=== PATIENT | female | born 1995 | race Caucasian/White ===

== ENCOUNTER 2020-01-11 08:59 | Emergency (ER) | payer BC, SELFPAY ==
--- NOTE | 2020-01-11 09:17 | EDPHYS ---
Physician Documentation [facility] Name: Gabriela Myers Age: 24 yrs Sex: Female : 1995 Arrival Date: 01/11/2020 Time: 09:03 Bed 20 Private MD: ED Physician Miky Santamaria HPI: 01/10 09:18 This 24 yrs old Female presents to ER via Ambulatory with complaints of pm1 Insect Bite, Thigh Pain. 09:18 the patient presents with a swollen area of the lateral aspect of right thigh, believes pm1 that is a possible spider bite. Description: raised. Onset: The symptoms/episode began/occurred 2 day(s) ago. Possible cause(s): spider bite. Associated signs and symptoms: Pertinent negatives: discharge, drainage, erythema, fever, nausea, vomiting. Modifying factors: the symptoms are alleviated by nothing, the symptoms are aggravated by touching. Severity of symptoms: in the emergency department the symptoms are unchanged. The patient has not experienced similar symptoms in the past. Tetanus shot last year. Historical: - Allergies: 09:12 Amoxicillin; bp 09:12 Vancomycin; bp - Home Meds: 09:12 None [Active]; bp - PMHx: 09:12 None; bp - Immunization history:: Adult Immunizations unknown. - Social history:: Smoking status: Patient denies any tobacco usage or history of. ROS: 09:18 Constitutional: Negative for fever, chills, and weight loss, ENT: Negative for injury, pm1 pain, and discharge, Cardiovascular: Negative for chest pain, palpitations, and edema, Respiratory: Negative for shortness of breath, cough, wheezing, and pleuritic chest pain, Abdomen/GI: Negative for abdominal pain, nausea, vomiting, diarrhea, and constipation, Back: Negative for injury and pain. 09:18 Neuro: Negative for headache, weakness, numbness, tingling, and seizure. 09:18 MS/extremity: Positive for right inguinal pain, Negative for decreased range of motion, deformity, paresthesias, tingling. 09:18 Skin: Positive for of the lateral aspect of right thigh, raised circular area, Negative for abscesses, cellulitis. Exam: 09:18 Constitutional: This is a well developed, well nourished patient who is awake, alert, pm1 and in no acute distress. Head/Face: Normocephalic, atraumatic. 09:18 Cardiovascular: Exam negative for acute changes, Rate: normal, Rhythm: regular, Pulses: no pulse deficits are appreciated. 09:18 Respiratory: Exam negative for acute changes, respiratory distress, shortness of breath, wheezing. 09:18 Musculoskeletal/extremity: Extremities: grossly normal except: noted in the lateral aspect of right thigh: 1.5 cm circular phlegmon, no lymphadenopathy present to right inguinal area. 09:18 Skin: Appearance: normal except for affected area, abscess, not appreciated, cellulitis, is not appreciated, 1.5 cm circular phelgmon at lateral aspect of right thigh. No fluctuance, pointing, or surrounding cellulitis.. 09:18 Neuro: Exam negative for acute changes, Orientation: is normal, Motor: is normal, moves all fours, Gait: is steady, at a normal pace, without difficulty. Vital Signs: 09:10 BP 147 / 103; Pulse 83; Resp 17; Temp 99.5; Pulse Ox 100% ; Weight 106.59 kg; Height 5 bp ft. 7 in. (170.18 cm); 09:10 Body Mass Index 36.81 (106.59 kg, 170.18 cm) bp MDM: 09:15 Patient medically screened. pm1 09:16 Data reviewed: vital signs. Data interpreted: Pulse oximetry: on room air is 100 %. pm1 Interpretation: normal. Counseling: I had a detailed discussion with the patient and/or guardian regarding: the historical points, exam findings, and any diagnostic results supporting the discharge/admit diagnosis, the need for outpatient follow up, a family practitioner, to return to the emergency department if symptoms worsen or persist or if there are any questions or concerns that arise at home. Administered Medications: No medications were administered Disposition: 20:53 Co-signature as Attending Physician, Miky Santamaria MD I agree with the assessment and kenia plan of care. Disposition: 01/11/20 09:17 Discharged to Home. Impression: Insect bite (nonvenomous), right lower leg - Right thigh. - Condition is Stable. - Discharge Instructions: Insect Bite. - Prescriptions for Bactrim DS 800- 160 mg Oral Tablet - take 1 tablet by ORAL route every 12 hours for 10 days; 20 tablet. - Medication Reconciliation Form, Thank You Letter, Antibiotic Education, Prescription Opioid Use form. - Follow up: Emergency Department; When: As needed; Reason: Worsening of condition. Follow up: Private Physician; When: 2 - 3 days; Reason: Recheck today's complaints, Continuance of care, Re-evaluation by your physician. - Problem is new. - Symptoms have improved. Signatures: Miky Santamaria MD MD cha Marinas, Patrick, AUTO OVERHAULER AUTO OVERHAULER pm1 Kael Aguirre, RN RN bp Corrections: (The following items were deleted from the chart) 09:28 09:17 01/11/2020 09:17 Discharged to Home. Impression: Insect bite (nonvenomous), right bp lower leg - Right thigh. Condition is Stable. Forms are Medication Reconciliation Form, Thank You Letter, Antibiotic Education, Prescription Opioid Use. Follow up: Emergency Department; When: As needed; Reason: Worsening of condition. Follow up: Private Physician; When: 2 - 3 days; Reason: Recheck today's complaints, Continuance of care, Re-evaluation by your physician. Problem is new. Symptoms have improved. pm1
--- NOTE | 2020-01-11 09:17 | ER ---
Nurse's Notes [facility] Name: Gabriela Myers Age: 24 yrs Sex: Female : 1995 Arrival Date: 01/11/2020 Time: 09:03 Bed 20 Private MD: Diagnosis: Insect bite (nonvenomous), right lower leg-Right thigh Presentation: 01/10 09:10 Chief complaint: Patient states: I THINK I GOT A SPIDER BITE. Coronavirus screen: bp Proceed with normal triage. Ebola Screen: No symptoms or risks identified at this time. Initial Sepsis Screen: Does the patient meet any 2 criteria? No. Patient's initial sepsis screen is negative. Does the patient have a suspected source of infection? No. Patient's initial sepsis screen is negative. Risk Assessment: Do you want to hurt yourself or someone else? Patient reports no desire to harm self or others. Onset of symptoms is unknown. 09:10 Method Of Arrival: Ambulatory bp 09:10 Acuity: SULMA 4 bp Triage Assessment: 09:12 Bite description: bite sustained to right hip by an unknown animal, animal information: bp vaccination(s) is not applicable. General: Appears in no apparent distress. uncomfortable, obese, Behavior is cooperative, appropriate for age, anxious. Pain: Complains of pain in right hip. EENT: No deficits noted. Neuro: No deficits noted. Cardiovascular: No deficits noted. Respiratory: No deficits noted. GI: No signs and/or symptoms were reported involving the gastrointestinal system. : No signs and/or symptoms were reported regarding the genitourinary system. Derm: Abscess located on right hip. Musculoskeletal: No deficits noted. Historical: - Allergies: 09:12 Amoxicillin; bp 09:12 Vancomycin; bp - Home Meds: 09:12 None [Active]; bp - PMHx: 09:12 None; bp - Immunization history:: Adult Immunizations unknown. - Social history:: Smoking status: Patient denies any tobacco usage or history of. Screenin:13 Abuse screen: Denies threats or abuse. Denies injuries from another. Nutritional bp screening: No deficits noted. Tuberculosis screening: No symptoms or risk factors identified. Fall Risk None identified. Assessment: 09:13 General: SEE TRIAGE NOTE. Derm: Skin is intact, is healthy with good turgor, Skin is bp pink, warm \T\ dry. 09:27 Reassessment: PT D/C HOME AMBULATORY, DX WITH NONVENOMOUS INSECT BITE. bp Vital Signs: 09:10 BP 147 / 103; Pulse 83; Resp 17; Temp 99.5; Pulse Ox 100% ; Weight 106.59 kg; Height 5 bp ft. 7 in. (170.18 cm); 09:10 Body Mass Index 36.81 (106.59 kg, 170.18 cm) bp ED Course: 09:03 Patient arrived in ED. as 09:07 Kael Aguirre, RN is Primary Nurse. bp 09:07 Brijesh Gonzalez NP is PHCP. pm1 09:07 Miky Santamaria MD is Attending Physician. pm1 09:12 Triage completed. bp 09:13 Arm band placed on. bp 09:13 Patient has correct armband on for positive identification. Placed in gown. Bed in low bp position. Call light in reach. Side rails up X2. 09:27 No provider procedures requiring assistance completed. Patient did not have IV access bp during this emergency room visit. Administered Medications: No medications were administered Outcome: :17 Discharge ordered by . pm1 09:27 Discharged to home ambulatory. bp 09:27 Condition: stable 09:27 Discharge instructions given to patient, Instructed on discharge instructions, follow up and referral plans. medication usage, wound care, Demonstrated understanding of instructions, follow-up care, medications, wound care, Prescriptions given X 1. 09:28 Patient left the ED. bp Signatures: Yvette Carrillo as Brijesh Gonzalez, ANNA VALVE REPAIRER pm1 Kael Aguirre, RN RN bp
[2020-01-11 09:34] VITALS: BP 147/103; TEMP 99.5; O2SAT 100
--- OUTSIDE RECORDS SUMMARY | 2020-01-11 10:38 | XMS REPORT | Summary of Care ---
:1995 Author Organization [facility] Address [address] [place] [address] Care Team Providers Name Role Phone Trev Michaels Primary Care Provider Reason for Visit Reason Comments Cough X1 month , worsening Shortness of Breath chest tightness Sore Throat Encounter Details Date Type Department Care Team Description 10/14/2019 Urgent Care [facility] Family Mary Petty PA [address] [place] [address] [place] [address] Cough (Primary Dx); [place] [address], Acute Care Clinic Sore throat; [address] [place] [address] neli Diarrhea, [place] [address] Allergies Active Allergy Reactions Severity Noted Date Comments Amoxicillin Rash 10/14/2019 Vancomycin Rash 10/14/2019 documented as of this encounter (statuses as of 10/14/2019) Medications No known medicationsdocumented as of this encounter (statuses as of 10/14/2019) Active Problems Problem Noted Date Seasonal allergic rhinitis 10/14/2019 documented as of this encounter (statuses as of 10/14/2019) Social History Tobacco Use Types Packs/Day Years Used Date Never Smoker Smokeless Tobacco: Never Used Sex Assigned at Date Recorded Not on file Job Start Date Occupation Industry Not on file Not on file Not on file Travel History Travel Start Travel End No recent travel history available. documented as of this encounter Last Filed Vital Signs Vital Sign Reading Time Taken Comments Blood Pressure 134/84 10/14/2019 9:29 AM CDT Pulse 109 10/14/2019 9:29 AM CDT Temperature 37.4 C (99.3 F) 10/14/2019 9:29 AM CDT Respiratory Rate 18 10/14/2019 9:29 AM CDT Oxygen Saturation 99% 10/14/2019 9:29 AM CDT Inhaled Oxygen Concentration - - Weight 99.8 kg (220 lb) 10/14/2019 9:29 AM CDT Height 170.2 cm (5' 7") 10/14/2019 9:29 AM CDT Body Mass Index 34.46 10/14/2019 9:29 AM CDT documented in this encounter Progress Notes Ml El, ANNIE - 10/14/2019 9:00 AM CDT Informant(s): patient No abuse reported (sexual, emotional or physical) Chief Complaint: sore throat HPI 24 year old female is in the COVID clinic today for sore throat present 2-3 days. Associated signs and symptoms include See COVID screening below Has found intermittent relief with Tylenol for aches Activity: Appropriate for age Eating: normal Drinking: normal Urinating: >4 times in 24 hrs Vomiting: no Ill contacts: no, no COVID exposure Contributing factors: none Pain scale: 0/10 COVID-19 SCREEN: Recent sick contacts flu patient: no Contact with a proven COVID-19 case: no Symptoms of COVID-19, which include Fever: no SOB + Dry Cough: + Fatigue muscle cramps, joint pain : + fatigue and muscle aches Difficulty Breathing: + Loss of Taste and Smell: no Sore Throat: + Diarrhea and Abdominal Pain : loose stools + Had COVID test already: no Healthcare Worker: no, works in a [place] CHRONIC CONDITIONS: AR CURRENT MEDICATIONS No current outpatient medications on file. SOCIAL HISTORY Smoke exposure: no CURRENT PROBLEM LIST Patient Active Problem List Diagnosis Seasonal allergic rhinitis ASSOCIATED SYMPTOMS/REVIEW OF SYSTEMS Constitutional: (-) fever, (+) fatigue, (-) fussy Eyes: (-) redness, (-) drainage, (-) eyelid swelling Ears: (-) ear pain, (-) ear drainage Nose/Sinuses: (-) nasal congestion, (-) nasal flaring, (-)rhinorrhea Mouth/Throat: (+) throat pain, (-) lesions to mouth Cardiovascular: (-) chest pain, (-) palpitations Respiratory: (+) cough, (-) retractions, (+) SOB, (-) wheezing, (-) sneezing Gastrointestinal: (-) decreased appetite, (-) diarrhea, (-) vomiting, (-) abdominal pain, (-) nausea +loose stool Genitourinary: (-) hematuria, (-) dysuria Musculoskeletal: (+) myalgia, (-) joint pain Integumentary: (-) rash Neuro: (-) headache Endocrine: negative Hem/Lymph: negative Allergy/Immunology: Negative ALLERGIES Amoxicillin and Vancomycin HISTORY No history on file. History reviewed. No pertinent past medical history. History reviewed. No pertinent surgical history. Family History Problem Relation Age of Onset Heart Father enlarged heart Diabetes Maternal Grandfather Social History Social History Narrative Living with and 2 kids Extended Family Support: Yes Family Stressors: no Caregiver denies current or past physical, sexual, or emotional abuse Smoke exposure: no Pets: 1 dog PHYSICAL EXAMINATION BP 134/84 (BP Location: Left arm, Patient Position: Sitting, BP CUFF SIZE: Adult Medium) | Pulse 109 | Temp 37.4 C (99.3 F) (Oral) | Resp 18 | Ht 5' 7" (1.702 m) | Wt 220 lb (99.8 kg) | SpO2 99% | BMI 34.46 kg/m Normalized uhtvjje-wbf-uuk data not available for patients older than 20 years. Normalized hjxugf-mnj-ngm data not available for patients older than 20 years. Body mass index is 34.46 kg/m. Normalized BMI data available only for age 0 to 20 years. Blood pressure percentiles are not available for patients who are 18 years or older. General: Alert, active, in no acute distress. No grunting. Head: Normocephalic. Eyes: Conjunctiva clear. Ears: TM's normal. External auditory canals normal. Nose: Clear, no discharge. No nasal flaring. Turbinates normal Oral Pharynx: Moist mucous membranes. Soft palate without erythema and petechiae. No exudates. Posterior pharynx with cobblestone appearance. Neck: Supple without lymphadenopathy. Lungs: Clear to auscultation, no wheezing, rhonchi, crackles or chest retractions. Heart: Regular rate and rhythm. No murmur. Abdomen: Normal bowel sounds x 4. Abdomen is soft, non-distended and nontender. No HSM or masses. Neuro: Normal without focal findings. Musculoskeletal: Moves all extremities equally. Normal muscle tone. Skin: Warm, no rashes or lesions, no ecchymosis. ASSESSMENT Encounter Diagnoses Name Primary? Cough Yes Sore throat Diarrhea, unspecified type PLAN OTC probiotics Limit juices and fruits No milk Pedialyte Push fluids BRAT diet Push fluids Cool mist humidifier/or steam shower Elevate HOB 30 degrees ER warnings for S&S of dehydration or respiratory distress (grunting, nasal flaring or chest retractions) Tylenol prn for fever/pain - OTC as directed Discussed pathology and expected course of illness Call if S&S worsen Advised not to take NSAIDS including Ibuprofen, Motrin and Advil. Cony Ambriz - 10/14/2019 9:00 AM CDT Gabriela Moralez is a 24 year old female Chief Complaint Patient presents with Cough X1 month , worsening Shortness of Breath chest tightness Sore Throat Vitals: 10/14/19 0929 BP: 134/84 BP Location: Left arm Patient Position: Sitting BP CUFF SIZE: Adult Medium Pulse: 109 Resp: 18 Temp: 37.4 C (99.3 F) TempSrc: Oral SpO2: 99% Weight: 220 lb (99.8 kg) Height: 5' 7" (1.702 m) [facility]/pharmacy #[id number] [place] [id number] All Vitals taken, allergies and all medications reviewed, fall risk assessed. Pain level 2/10 CONY VARMA 10/14/2019 9:31 AM documented in this encounter Plan of Treatment Name Type Priority Associated Diagnoses Order S chedule CORONAVIRUS COVID-19 LAB Routine Cough Expecte d: 10/14/2019, TESTING Expires: 2020 Health Maintenance Due Date Last Done Comments VARICELLA VACCINES (1 of 2 - 2-dose 1997 childhood series) MENINGOCOCCAL B VACCINES (1 of 2 - 2006 Risk Bexsero 2-dose series) DTaP,Tdap,and Td Vaccines (1 - 2007 Tdap) HPV VACCINES (1 - Female 2-dose 2007 series) CHLAMYDIA SCREENING 2012 PAP SMEAR 2017 INFLUENZA VACCINE (#1) 2019 PNEUMOCOCCAL 0-64 YEARS COMBINED Aged Out No longer eligible based on SERIES patient's age to complete this topic documented as of this encounter Results Not on filedocumented in this encounter Visit Diagnoses Diagnosis Cough - Primary Sore throat Acute pharyngitis Diarrhea, unspecified type documented in this encounter Insurance Payer Benefit Plan Subscriber ID Effective Dates Phone Address Type / Group [facility] [id number] 2017-Manju [phone] [address] PPO/POS [place] [employer] t 7 [id number] [place] [address] documented as of this encounter
--- OUTSIDE RECORDS SUMMARY | 2020-01-11 10:38 | XMS REPORT | Summary of Care ---
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 letter) [facility] [address] [place] [address] [place] [address] [phone] [address] Allergies Active Allergy Reactions Severity Noted Date Comments Amoxicillin Rash 10/14/2019 Vancomycin Rash 10/14/2019 documented as of this encounter (statuses as of 10/15/2019) Medications No known medicationsdocumented as of this encounter (statuses as of 10/15/2019) Active Problems Problem Noted Date Seasonal allergic rhinitis 10/14/2019 documented as of this encounter (statuses as of 10/15/2019) Social History Tobacco Use Types Packs/Day Years Used Date Never Smoker Smokeless Tobacco: Never Used Sex Assigned at Date Recorded Not on file Job Start Date Occupation Industry Not on file Not on file Not on file Travel History Travel Start Travel End No recent travel history available. documented as of this encounter Last Filed Vital Signs Not on filedocumented in this encounter Plan of Treatment Health Maintenance Due Date Last Done Comments [...] Results Not on filedocumented in this encounter Insurance Payer Benefit Plan Subscriber ID Effective Dates Phone Address Type / Group [facility] [id number] 2017-Manju [phone] [address] PPO/POS [place] [employer] t [id number] [place] [address] documented as of this encounter
--- OUTSIDE RECORDS SUMMARY | 2020-01-11 10:38 | XMS REPORT | Summary of Care ---
:1995 Author Organization [facility] Address [address] [place] [address] Care Team Providers Name Role Phone Xenia Trev Primary Care Provider Reason for Visit Reason Comments Forms return to work letter Encounter Details Date Type Department Care Team Description 10/15/2019 Telephone [facility] Family Ml El, Form s (return to work Medicine - [place] [employer] OTHER [employer]ITERS letter) [facility] [address] [place] [address] [place] [address] [phone] Allergies Active Allergy Reactions Severity Noted [...] Effective Dates Phone Address Type / Group [facility] [id number] 2017-Manju [phone] [address] PPO/POS [place] [employer] t 7 [id number] [place] [address] documented as of this encounter
--- OUTSIDE RECORDS SUMMARY | 2020-01-11 10:38 | XMS REPORT | Summary of Care ---
:1995 Author Organization [facility] Address [address] [place] [address] Care Team Providers Name Role Phone Elmer Michaelsey Primary Care Provider Reason for Visit Reason Comments Letters Encounter Details Date Type Department Care Team Description 10/16/2019 Telephone [facility] Family Medicine Pob1, Acute C are Clinic Letters - [address] [address] Allergies Active Allergy Reactions Severity Noted Date Comments Amoxicillin Rash 10/14/2019 Vancomycin Rash 10/14/2019 documented as of this encounter (statuses as of 10/16/2019) Medications No known medicationsdocumented as of this encounter (statuses as of 10/16/2019) Active Problems Problem Noted Date Seasonal allergic rhinitis 10/14/2019 documented as of this encounter (statuses as of 10/16/2019) Social History Tobacco Use Types Packs/Day Years [...] Effective Dates Phone Address Type / Group [facility] [id number] 2017-Manju [phone] [address] PPO/POS [facility] 7 [id number] [place] [address] documented as of this encounter
--- OUTSIDE RECORDS SUMMARY | 2020-01-11 10:38 | XMS REPORT | Summary of Care ---
:1995 Author Organization [facility] Address [address] [place] [address] Care Team Providers Name Role Phone Trev Michaels Primary Care Provider Reason for Visit Reason Comments Results Encounter Details Date Type Department Care Team Description 10/15/2019 Telephone [facility] Family Medicine - Ml Ferraro FNP Results [place] [id number] [address] [place] [address] [phone] Allergies Active Allergy Reactions Severity Noted Date [...] Effective Dates Phone Address Type / Group [facility] [id number] 2017-Manju [phone] [address] PPO/POS [place] [employer] t [id number] [place] [address] documented as of this encounter
--- OUTSIDE RECORDS SUMMARY | 2020-01-11 10:38 | XMS REPORT | Summary of Care ---
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
--- OUTSIDE RECORDS SUMMARY | 2020-01-11 10:39 | XMS REPORT | Continuity of Care Document ---
:1995 Author Organization [facility] t Address [address] [place] [address] Care Team Providers Name Role Phone Pob1, Care Clinic Attending Clinician Unavailable Nikko VALENCIA Attending Clinician Doctor Unassigned, Name Attending Clinician Unavailable Problems This patient has no known problems. Allergies, Adverse Reactions, Alerts This patient has no known allergies or adverse reactions. Medications This patient has no known medications. Procedures This patient has no known procedures. Encounters Start End Encounter Admission Attending Care Care Encounter Source Date/Time Date/Time Type Type Clinicians Facility Department ID 2019-10-16 2019-10-16 Telephone [facility] [id number] 00:00:00 00:00:00 Care [facility] [id number] [place] [id number] Professio [phone] [address] 2019-10-15 2019-10-15 Letter Nikko MOGLORIA [id number] 00:00:00 00:00:00 (Out) [facility] [id number] [place] [id number] Professio [phone] nal [address] 2019-10-15 2019-10-15 Patient Doctor GIANLUCA [id number] 00:00:00 00:00:00 Secure Msg Unassigned, JAY JAY [id number] [place] [facility] [id number] [phone] Results This patient has no known results.
--- OUTSIDE RECORDS SUMMARY | 2020-01-11 10:39 | XMS REPORT | Summary of Care ---
:1995 Author Organization [facility] Address [address] [place] [address] Care Team Providers Name Role Phone Elmer Michaelsey Primary Care Provider Reason for Visit Reason Comments Letters Encounter Details Date Type Department Care Team Description 10/16/2019 Telephone [facility] Family Medicine Pob1, Acute C are Clinic Letters - [address] [phone] Allergies Active Allergy Reactions Severity Noted [...] Effective Dates Phone Address Type / Group [facility] [id number] 2017-Manju [phone] [address] PPO/POS [facility] [id number] [place] [address] documented as of this encounter
--- OUTSIDE RECORDS SUMMARY | 2020-01-11 10:39 | XMS REPORT | Summary of Care ---
:1995 Author Organization [facility] Address [address] [place] [address] Care Team Providers Name Role Phone Elmer Michaelsey Primary Care Provider Encounter Details Date Type Department Care Team Description 10/15/2019 Patient Secure Msg [facility] [employer] Message s Doctor Unassigned, [address] [place] [address] [place] [phone] [phone] [place] [address] [place] [address] Allergies Active Allergy Reactions Severity Noted Date Comments Amoxicillin Rash 10/14/2019 Vancomycin Rash 10/14/2019 documented as of this encounter (statuses as of 11/21/2019) Medications No known medicationsdocumented as of this encounter (statuses as of 11/21/2019) Active Problems Problem Noted Date Seasonal allergic rhinitis 10/14/2019 documented as of this encounter (statuses as of 11/21/2019) Social History Tobacco Use Types Packs/Day Years [...] Last Done Comments VARICELLA VACCINES (1 of - 1997 2-dose childhood series) MENINGOCOCCAL B VACCINES (1 of - 2006 Risk Bexsero 2-dose series) DTaP,Tdap,and Td Vaccines (1 - 2007 Tdap) HPV VACCINES (1 - Female 2-dose 2007 series) CHLAMYDIA SCREENING 2012 PAP SMEAR 2017 INFLUENZA VACCINE Completed 05/08/2019 PNEUMOCOCCAL 0-64 YEARS COMBINED Aged Out No longer eligible based on SERIES patient's age to complete this topic documented as of this encounter Results Not on filedocumented in this encounter Insurance Payer Benefit Plan Subscriber ID Effective Dates Phone Address Type / Group [facility] [id number] 2017-Manju [phone] [address] PPO/POS [place] [employer] [facility] [id number] [place] [address] documented as of this encounter
--- OUTSIDE RECORDS SUMMARY | 2020-01-11 10:39 | XMS REPORT | Summary of Care ---
:1995 Author Organization [facility] Address [address] [place] [address] Care Team Providers Name Role Phone Elmer Michaelsey Primary Care Provider Reason for Visit Reason Comments Letters Encounter Details Date Type Department Care Team Description 10/16/2019 Telephone [facility] Family Medicine Pob1, Acute C are Clinic Letters - [address] [phone] Allergies Active Allergy Reactions Severity Noted [...] Effective Dates Phone Address Type / Group [facility] [id number] 2017-Manju [phone] [address] PPO/POS [facility] [phone] [place] [address] documented as of this encounter
--- OUTSIDE RECORDS SUMMARY | 2020-01-11 10:39 | XMS REPORT | Summary of Care ---
:1995 Author Organization [facility] Address [address] [place] [address] Care Team Providers Name Role Phone Xenia Trev Primary Care Provider Encounter Details Date Type Department Care Team Description 10/15/2019 Letter (Out) [facility] Family Medicine [place] [facility] [address] [phone] Allergies Active Allergy Reactions Severity Noted Date Comments Amoxicillin Rash 10/14/2019 Vancomycin Rash 10/14/2019 documented as of this encounter (statuses as of 10/21/2019) Medications No known medicationsdocumented as of this encounter (statuses as of 10/21/2019) Active Problems Problem Noted Date Seasonal allergic rhinitis 10/14/2019 documented as of this encounter (statuses as of 10/21/2019) Social History Tobacco Use Types Packs/Day Years [...] 1997 2-dose childhood series) MENINGOCOCCAL B VACCINES ( - 2006 Risk Bexsero 2-dose series) DTaP,Tdap,and [...] Effective Dates Phone Address Type / Group [facility] [id number] 2017-Manju [phone] [address] PPO/POS [place] [facility] t [phone] [place] [address] documented as of this encounter
== END 2020-01-11 09:28 | disposition home or self-care (01) ==
LOC: ER 08:59
DX: S70.361A Insect bite (nonvenomous), right thigh, initial encounter (principal); Z88.1 Allergy status to other antibiotic agents
CPT/HCPCS: 99282